=== PATIENT | female | born 1990 | race Caucasian/White ===

== ENCOUNTER 2020-01-06 06:07 | Day surgery (SDC) | payer OTHER ==
[2020-01-06] MEDS ORDERED: CEFAZOLIN SODIUM IN 0.9 % NACL 2 GM/100 ML BAG IV ONE (06:17)
[2020-01-06 06:28] LABS: HCG UR QUAL NEGATIVE
[2020-01-06] MEDS ORDERED: LACTATED RINGERS 1,000 ML IV ONE ×3 (06:37→08:38)
--- NOTE | 2020-01-06 07:02 | ANESTHESIA ---
Pre-Anesthesia VS, & Labs - Diagnosis right carpal tunnel syndrome - Procedure right carpal tunnel release Vital Signs: Temp Pulse Resp BP Pulse Ox 36.6 C 94 16 122/80 100 01/06/20 06:29 01/06/20 06:29 01/06/20 06:29 01/06/20 06:29 01/06/20 06:29 Height 5 ft 7 in Weight (kg) 75.75 kg - NPO >8 hours - Is Patient ?: No Home Medications and Allergies Home Medications: Ambulatory Orders Folic Acid 0.4 mg PO 12/30/19 Pnv No.121/Iron/Folic Acid [ Multivitamin Tablet] 1 each PO 12/30/19 Pregabalin [Lyrica] 150 mg PO 12/30/19 Folic Acid 0.4 mg PO 12/30/19 Pnv No.121/Iron/Folic Acid [ Multivitamin Tablet] 1 each PO 12/30/19 Pregabalin [Lyrica] 150 mg PO 12/30/19 Allergies/Adverse Reactions: Allergies Allergy/AdvReac Type Severity Reaction Status Date / Time amoxicillin Allergy Rash Verified 12/30/19 12:58 latex Allergy Rash Verified 12/30/19 12:58 Sulfa (Sulfonamide Allergy Rash Verified 12/30/19 12:58 Antibiotics) codeine AdvReac Nausea Verified 12/30/19 12:58 Anes History & Medical History - Anesthetic History Anesthesia Complications: reports: No previous complications - Medical History Cardiovascular: reports: None Pulmonary: reports: None Gastrointestinal: reports: None Urinary: reports: None Musculoskeletal: reports: Fibromyalgia, Other Endocrine/Autoimmune: reports: None Skin: reports: None - Surgical History General: Cholecystectomy Eyes Ears Nose Throat (EENT): Tonsil/Adenoidectomy Exam General: Alert Dental: WNL Mouth Opening: Greater than 4 Fingerbreadths Neck Mobility: Limited Mallampati classification: II Thyromental Distance: greater than 6 cm Respiratory: Lungs clear Cardiovascular: Regular rate, Normal S1, Normal S2 Plan Anesthesia Type: General Consent for Procedure(s) Verified and Reviewed: Yes Code Status: Attempt Resuscitation ASA classification: 2-Mild systemic disease Is this case an emergency?: No
[2020-01-06] MEDS ORDERED: BUPIVACAINE 0.25% PF 30 ML VIAL ONE (07:09)
[2020-01-06] MEDS ORDERED: LIDOCAINE-MPF 2% 5 ML VIAL IM ONE (07:26)
[2020-01-06] MEDS ORDERED: MIDAZOLAM 2 MG/2 ML VIAL IVP ONE (07:26)
[2020-01-06] MEDS ORDERED: KETOROLAC 30 MG/ML VIAL IVP ONE (07:26)
[2020-01-06] MEDS ORDERED: fentaNYL 100 MCG/2 ML VIAL IVP ONE (07:26)
[2020-01-06] MEDS ORDERED: ONDANSETRON 4 MG/2 ML VIAL IVP ONE (07:26)
[2020-01-06] MEDS ORDERED: DEXAMETHASONE 4 MG/ML VIAL IVP ONE (07:26)
[2020-01-06] MEDS ORDERED: PROPOFOL 200 MG/20 ML VIAL IVP ONE (07:26)
[2020-01-06] MEDS ORDERED: BUPIVACAINE 0.25% PF 30 ML VIAL SUBQ ONE ×2 (07:47)
[2020-01-06] MEDS ORDERED: ONDANSETRON 4 MG/2 ML VIAL IVP PRN (08:17)
--- NOTE | 2020-01-06 08:21 | OPERATIVE REPORT ---
Operative Report - Other Other Information/Narrative: Date of Surgery: 06 January 2020 Pre-Op Diagnosis: Right Carpal tunnel syndrome Procedure: Right Open carpal tunnel release Postop Diagnosis: Right Carpal tunnel syndrome Primary Surgeon: Alex Schroeder Secondary Surgeon: None Complications: None Tourniquet Time: 4 minutes EBL: 5 cc Indication For Surgery: 29-year-old female with ankylosing spondylitis and fibromyalgia with 1 year of right sided carpal tunnel syndrome with moderate to severe changes on a nerve conduction study. She failed management with nonoperative treatment. The risks, benefits, and alternatives were discussed. Risks include pain, bleeding, infection, damage to nearby structures, numbness, pillar pain, lack of symptom relief, need for further surgery, DVT, PE, stroke, and . Written consent was obtained. The patient was met in the preoperative holding on the day of the procedure. Operative extremity was signed. Consent was verified. They desire to proceed. They were brought to the operating room and placed in the supine position. A well-padded forearm tourniquet was applied. They were prepped and draped in the standard fashion. A surgical timeout was held will be confirmed the patient procedure, identity, allergies, antibiotics, images and laterality. All were in agreement we proceeded. An Esmarch was used to exsanguinate the limb and the tourniquet was elevated to 250 mmHg. A 3cm longitudinal incision was made in line with the ulnar border of the ring finger starting at Valdes's Cardinal line distally. This was just radial to the hook of the hamate. Bipolar electrocautery was used at the skin edge. Sharp dissection was brought down through the palmar fascia. Retractors were placed. The transverse carpal ligament was identified and a knife was used to separate it. The contents of the carpal tunnel were seen. Knife dissection was used to release the ligament as far proximal as could be visualized. Long handled Metzenbaum scissors were then used to create a pocket just superficial to the transverse carpal ligament and a retractor was placed. I then used a long handled Metzenbaum with the tips pointed ulnarly to complete the release 2 cm into the antebrachial fascia. Retractors were then moved distally and I confirmed complete release in the appearance of fat in the palm. A freer elevator was used to confirm complete release both proximally and distally. The wound was packed with a moist gauze and the tourniquet was deflated. After holding for 3 minutes the gauze was removed and bleeding was coming from the skin edge. Bleeding was controlled with bipolar electrocautery. The wound was closed with 4-0 nylon in a horizontal mattress configuration. 5 cc of local anesthetic was placed. A sterile bulky dressing was applied. He was awakened and transferred to the recovery room.
[2020-01-06] MEDS ORDERED: oxyCODONE 5 MG TABLET PO PRN (08:26)
[2020-01-06] MEDS ORDERED: fentaNYL 100 MCG/2 ML VIAL ONE (08:30)
[2020-01-06 09:40] VITALS: BP 105/70
== END 2020-01-06 06:08 | disposition home or self-care (01) ==
LOC: SDS 06:07
PROVIDERS: ATTEND Orthopaedic Surgery
DX: G56.01 Carpal tunnel syndrome, right upper limb (principal); M79.7 Fibromyalgia
CPT/HCPCS: 81025

== ENCOUNTER 2020-03-03 16:22 | Emergency (ER) | payer OTHER ==
[2020-03-03 17:13] LABS: BASOPHILS # (AUTO) 0.1 10^3/uL (0.0-0.1); BASOPHILS % (AUTO) 0.7 %; EOSINOPHILS # (AUTO) 0.1 10^3/uL (0.0-0.7); EOSINOPHILS % (AUTO) 1.9 %; HGB - HEMOGLOBIN 12.8 g/dL (12.0-16.0); LYMPHOCYTES # (AUTO) 2.3 10^3/uL (1.5-3.5); LYMPHOCYTES % (AUTO) 30.4 %; MEAN CORPUSCULAR HEMOGLOBIN 30.7 pg (27.0-31.0); MEAN CORPUSCULAR HGB CONC 33.4 g/dL (32.0-36.0); MEAN CORPUSCULAR VOLUME 91.8 fL (81.0-99.0); MEAN PLATELET VOLUME 10.7 fL (7.9-10.8); MONOCYTES # (AUTO) 0.4 10^3/uL (0.0-1.0); MONOCYTES % (AUTO) 5.6 %; NEUTROPHILS # (AUTO) 4.6 10^3/uL (1.5-6.6); NEUTROPHILS % (AUTO) 61.1 %; PLT - PLATELET COUNT 259 10^3/uL (130-450); RED BLOOD COUNT 4.17 10^6/uL (4.20-5.40); RED CELL DISTRIBUTION WIDTH 12.6 % (12.0-15.0); WHITE BLOOD COUNT 7.4 x10^3/uL (4.8-10.8)
[2020-03-03 17:27] LABS: ALBUMIN 4.1 g/dL (3.2-5.5); ALBUMIN/GLOBULIN RATIO 1.3 (1.0-2.2); BILIRUBIN,TOTAL 0.4 mg/dL (0.2-1.0); CALCIUM 8.8 mg/dL (8.5-10.3); CREATININE 0.6 mg/dL (0.4-1.0); TOTAL PROTEIN 7.3 g/dL (6.7-8.2)
--- NOTE | 2020-03-03 17:49 | ED Physician Documentation ---
<Cleve Feliciano - Last Filed: 03/03/20 20:44> PD HPI ABD PAIN - Stated complaint Stated Complaint: ABD & BACK PX - Chief complaint Chief Complaint: Abd Pain - History obtained from History obtained from: Patient PD PAST MEDICAL HISTORY - Present Medications Home Medications: Ambulatory Orders Medication Instructions Recorded Confirmed Folic Acid 0.4 mg PO 12/30/19 Pnv No.121/Iron/Folic Acid 1 each PO 12/30/19 [ Multivitamin Tablet] Pregabalin [Lyrica] 150 mg PO 12/30/19 - Allergies Allergies/Adverse Reactions: Allergies Allergy/AdvReac Type Severity Reaction Status Date / Time amoxicillin Allergy Rash Verified 03/03/20 16:41 latex Allergy Rash Verified 03/03/20 16:41 Sulfa (Sulfonamide Allergy Rash Verified 03/03/20 16:41 Antibiotics) codeine AdvReac Nausea Verified 03/03/20 16:41 PD MEDICAL DECISION MAKING - ED course Complexity details: other (20:45 patient signed out to me at shift change by dr. esquivel. patient reexamined at this time, pain is resolved. patient updated on results. will f/u w pcp and exceptional children teacher this week.) Departure - Departure Disposition: 01 Home, Self Care Clinical Impression: Ovarian cyst Qualifiers: Laterality: left Qualified Code(s): N83.202 - Unspecified ovarian cyst, left side Condition: Stable Instructions: ED Cyst Ovarian Follow-Up: REE OSPINA ARNP [Primary Care Provider] - Tomorrow Comments: call your NEEDLE CONTROL CHENILLER tomorrow or your PCP tomorrow to schedule a follow up. Discharge Date/Time: 03/03/20 20:53 <Phillip Esquivel - Last Filed: 03/04/20 00:10> PD HPI ABD PAIN - History obtained from History obtained from: Patient - History of Present Illness Timing - onset: How many days ago (4) Timing - duration: Days (4) Timing - details: Gradual onset, Still present (worse abruptly the past several hours. She had started on Clomid ovulation sitmulation med and talked with her mining engineering technologist about the pains, referred to ER to ensure no significant cause.), Waxing and waning Quality: Cramping, Aching, Sharp (today), Pain Location: RLQ, Suprapubic, LLQ Radiation: Lower back Improved by: No: Eating, Laying still Worsened by: Moving, Palpation. No: Eating, Breathing Associated symptoms: Nausea. No: Fever, Vomiting, Diarrhea, Constipation, Dysuria, Loss of appetite, Vaginal bleeding, Vaginal dc Similar symptoms before: Has not had sx before Recently seen: Clinic ([facility] about infertility med.) Review of Systems Constitutional: denies: Fever, Chills Nose: denies: Rhinorrhea / runny nose, Congestion Throat: denies: Sore throat Cardiac: denies: Chest pain / pressure Respiratory: denies: Cough GI: reports: Abdominal Pain, Nausea. denies: Vomiting, Constipation, Diarrhea : denies: Dysuria, Frequency, Discharge PD PAST MEDICAL HISTORY - Past Medical History Cardiovascular: None Respiratory: None Endocrine/Autoimmune: None GI: None : None HEENT: None Psych: None Musculoskeletal: Fibromyalgia, Other Derm: None - Past Surgical History General: Cholecystectomy HEENT: Tonsil/Adenoidectomy PD ED PE NORMAL - Vitals Vital signs reviewed: Yes - General General: Alert and oriented X 3, No acute distress, Well developed/nourished - HEENT HEENT: Moist mucous membranes, Pharynx benign - Neck Neck: Supple, no meningeal sign, No adenopathy - Cardiac Cardiac: RRR, No murmur - Respiratory Respiratory: Clear bilaterally - Abdomen Abdomen: Normal bowel sounds, Soft, Non distended, No organomegaly, Other (tender in suprapubic and infraumbilical area midline mainly with slight in both left and right lower abd/pelvic area. Not tender at [place] point itself. ) - Female Female : Deferred - Rectal Rectal: Deferred - Back Back: No CVA TTP - Derm Derm: Normal color, Warm and dry Results - Vitals Vitals: Vital Signs - 24 hr 03/03/20 03/03/20 03/03/20 16:32 16:41 18:22 Temperature 36.4 C L 36.9 C Heart Rate 110 H 88 84 Respiratory 20 20 18 Rate Blood Pressure 134/88 H 130/80 128/79 O2 Saturation 99 100 99 03/03/20 20:53 Temperature Heart Rate 77 Respiratory 16 Rate Blood Pressure 137/97 H O2 Saturation 100 Oxygen O2 Source Room air - Labs Labs: Laboratory Tests 03/03/20 03/03/20 03/03/20 16:50 17:07 17:07 WBC 7.4 RBC 4.17 L Hgb 12.8 Hct 38.3 MCV 91.8 MCH 30.7 MCHC 33.4 RDW 12.6 Plt Count 259 MPV 10.7 Neut # (Auto) 4.6 Lymph # (Auto) 2.3 Meagher # (Auto) 0.4 Eos # (Auto) 0.1 Baso # (Auto) 0.1 Absolute Nucleated RBC 0.00 Nucleated RBC % 0.0 Sodium 137 Potassium 3.5 Chloride 103 Carbon Dioxide 25 Anion Gap 9.0 BUN 11 Creatinine 0.6 Estimated GFR (MDRD) 119 Glucose 94 Calcium 8.8 Total Bilirubin 0.4 AST 29 ALT 32 Alkaline Phosphatase 49 Total Protein 7.3 Albumin 4.1 Globulin 3.2 Albumin/Globulin Ratio 1.3 Lipase 42 Serum HCG, Qual Urine Color YELLOW Urine Clarity CLEAR Urine pH 6.0 Ur Specific [place] 1.020 Urine Protein NEGATIVE Urine Glucose (UA) NEGATIVE Urine Ketones NEGATIVE Urine Occult Blood NEGATIVE Urine Nitrite NEGATIVE Urine Bilirubin NEGATIVE Urine Urobilinogen 0.2 (NORMAL) Ur Leukocyte Esterase NEGATIVE Ur Microscopic Review NOT INDICATED Urine Culture Comments NOT INDICATED 03/03/20 17:07 WBC RBC Hgb Hct MCV MCH MCHC RDW Plt Count MPV Neut # (Auto) Lymph # (Auto) Meagher # (Auto) Eos # (Auto) Baso # (Auto) Absolute Nucleated RBC Nucleated RBC % Sodium Potassium Chloride Carbon Dioxide Anion Gap BUN Creatinine Estimated GFR (MDRD) Glucose Calcium Total Bilirubin AST ALT Alkaline Phosphatase Total Protein Albumin Globulin Albumin/Globulin Ratio Lipase Serum HCG, Qual NEGATIVE Urine Color Urine Clarity Urine pH Ur Specific [place] Urine Protein Urine Glucose (UA) Urine Ketones Urine Occult Blood Urine Nitrite Urine Bilirubin Urine Urobilinogen Ur Leukocyte Esterase Ur Microscopic Review Urine Culture Comments - Rads (name of study) pelvic U/S Radiology: Prelim report reviewed (3.7 cm ovarian cyst without free fluid. Normal flow to both ovaries. ), See rad report PD MEDICAL DECISION MAKING - ED course Complexity details: reviewed results (3.7 cm left ovarian cyst. No free fluid. Normal flow to ovaries. ), considered differential (consider ovarian pain due to med stimulation versus new cyst, internal bleeding, ovarian torsion, or other cause. Low suspicion for appendix. Can check urine for infection. ), d/w patient ED course: care turned over to Dr. Feliciano at change of shift, with U/S report pending.
[2020-03-03 18:03] LABS: HCG,QUALITATIVE BLOOD NEGATIVE
[2020-03-03 18:07] LABS: BILIRUBIN,URINE NEGATIVE (NEGATIVE); CLARITY,URINE CLEAR (CLEAR); GLUCOSE, URINE (UA) NEGATIVE (NEGATIVE); KETONES,URINE (UA) NEGATIVE (NEGATIVE); LEUKOCYTE ESTERASE, URINE NEGATIVE (NEGATIVE); NITRITE,URINE NEGATIVE (NEGATIVE); OCCULT BLOOD,URINE NEGATIVE (NEGATIVE); PROTEIN,URINE NEGATIVE (NEGATIVE); UROBILINOGEN,URINE 0.2 (NORMAL) E.U./dL (NORMAL)
[2020-03-03] MEDS ORDERED: KETOROLAC 30 MG/ML VIAL IVP STA (18:22)
[2020-03-03] MEDS ORDERED: ACETAMINOPHEN 325 MG TABLET PO STA (18:22)
[2020-03-03] MEDS ORDERED: ONDANSETRON 4 MG/2 ML VIAL IVP STA (18:23)
[2020-03-03] MEDS ORDERED: ONDANSETRON ODT 4 MG TABLET TL STA (18:42)
[2020-03-03] MEDS ORDERED: KETOROLAC 30 MG/ML VIAL IM STA (18:42)
--- NOTE | 2020-03-03 20:13 | Ultrasound Report ---
Reason: pelvic pain, R Procedure Date: 03/03/2020 Accession Number: [id number] / [id number] Procedure: US - Pelvic w/Transvag+Doppler Comp CPT Code: Final Report FULL RESULT: EXAM: PELVIC ULTRASOUND WITH DOPPLERS CLINICAL HISTORY: Pelvic pain, R. COMPARISON: None. TECHNIQUE: Realtime transabdominal imaging performed to identify the uterus and adnexa and as an overview of other pelvic structures, followed by transvaginal imaging for better assessment of the endometrium and adnexa, with static image documentation. Color flow imaging and Doppler spectral analysis was performed to evaluate blood flow to the ovaries given pelvic pain and clinical concern for ovarian torsion. FINDINGS: Uterus: 7.7 x 2.7 x 4.3 cm, volume 47.1 cc. Anteverted position. Normal overall size and echotexture. Masses: None. Endometrium: 4 mm. Echogenic. Normal thickness Cervix: Unremarkable. Right Ovary: 2.1 x 1.5 x 1.8 cm, volume 3 cc. Normal echotexture. Arterial and venous blood flow are present. PSV 4.5 cm/sec. RI 0.6. Adnexa are unremarkable. Left Ovary: 4.7 x 2.6 x 4.4 cm, volume 28 cc. 3.7 x 3.1 x 2.3 cm simple cyst Arterial and venous blood flow are present. PSV 9.9 cm/sec. RI 0.6. Adnexa are unremarkable. Free Fluid: Small amount in cul-de-sac Other: None. IMPRESSION: 1. Left ovary simple cyst 3.7 cm. 2. Arterial and venous blood flow are present to the ovaries bilaterally. RADIA
[2020-03-03 20:54] VITALS: BP 137/97
== END 2020-03-03 20:53 | disposition home or self-care (01) ==
LOC: ED 16:22
DX: N83.202 Unspecified ovarian cyst, left side (principal)
CPT/HCPCS: 36415; 76830; 76856; 80053; 81003; 83690; 84703; 85025; 93975; 96372; 99284; A9270; Q0162; 81001; 87086

== ENCOUNTER 2020-07-16 06:11 | Day surgery (SDC) | payer OTHER ==
[2020-07-16] MEDS ORDERED: DEXAMETHASONE 4 MG/ML VIAL IVP ONE (06:12)
[2020-07-16] MEDS ORDERED: PROPOFOL 200 MG/20 ML VIAL IVP ONE (06:12)
[2020-07-16] MEDS ORDERED: fentaNYL 100 MCG/2 ML VIAL IVP ONE (06:12)
[2020-07-16] MEDS ORDERED: MIDAZOLAM 2 MG/2 ML VIAL IVP ONE (06:12)
[2020-07-16] MEDS ORDERED: CEFAZOLIN SODIUM IN 0.9 % NACL 2 GM/100 ML BAG IV ONE (06:22)
[2020-07-16] MEDS ORDERED: LACTATED RINGERS 1,000 ML IV ONE ×2 (06:30→08:11)
[2020-07-16 06:44] LABS: HCG UR QUAL NEGATIVE
[2020-07-16] MEDS ORDERED: fentaNYL 100 MCG/2 ML VIAL IVP PRN (07:02)
[2020-07-16] MEDS ORDERED: HYDROmorphone 0.5 MG/0.5 ML SYRINGE IVP PRN (07:02)
[2020-07-16] MEDS ORDERED: ePHEDrine 50 MG/ML VIAL IVP PRN (07:02)
[2020-07-16] MEDS ORDERED: NALOXONE 0.4 MG/ML VIAL IVP PRN (07:02)
[2020-07-16] MEDS ORDERED: METOCLOPRAMIDE 10 MG/2 ML VIAL IVP PRN (07:02)
[2020-07-16] MEDS ORDERED: ONDANSETRON 4 MG/2 ML VIAL IVP PRN (07:02)
[2020-07-16] MEDS ORDERED: ATROPINE ABBOJECT 1 MG/10 ML SYRINGE IVP PRN (07:02)
[2020-07-16] MEDS ORDERED: MORPHINE 2 MG/ML CARPUJECT IVP PRN (07:02)
[2020-07-16] MEDS ORDERED: BUPIVACAINE 0.25% PF 30 ML VIAL ONE (07:12)
[2020-07-16] MEDS ORDERED: LIDOCAINE-MPF 1% 30 ML VIAL ONE (07:12)
--- NOTE | 2020-07-16 07:28 | ANESTHESIA ---
Pre-Anesthesia VS, & Labs - Diagnosis Carpal Tunnel Syndrome - Procedure L carpal tunnel release Vital Signs: Temp Pulse Resp BP Pulse Ox 36.4 C L 83 16 118/85 H 97 07/16/20 06:30 07/16/20 06:30 07/16/20 06:30 07/16/20 06:30 07/16/20 06:30 Height: 5 ft 7 in Weight (kg): 79 kg Body Mass Index: 27.2 BMI Classification: Overweight - Is Patient ?: No Home Medications and Allergies Home Medications: Ambulatory Orders Nortriptyline HCl 50 mg PO DAILY PM 07/13/20 Active Medications Atropine Sulfate () 0.5 mg IVP Q5M PRN PRN Reason: Bradycardia Stop: 07/17/20 07:02 Ephedrine Sulfate () 10 mg IVP Q5M PRN PRN Reason: HYPOTENSION Stop: 07/17/20 07:02 Fentanyl (Fentanyl) 25 - 50 mcg IVP Q5M PRN PRN Reason: BREAKTHROUGH PAIN (2nd Choice) Stop: 07/17/20 07:02 Hydromorphone HCl (Dilaudid Inj Syringe) 0.2 - 0.6 mg IVP Q5M PRN PRN Reason: PAIN (First Choice) Stop: 07/17/20 07:02 Lactated Ringer's (Lr) 1,000 mls @ 100 mls/hr IV .Q10H JULIO CÉSAR Stop: 07/16/20 17:59 Metoclopramide HCl (Reglan Inj) 10 mg IVP Q6HR PRN PRN Reason: N/V not relieved by Zofran Morphine Sulfate (Morphine (Carpuject)) 2 - 4 mg IVP Q5M PRN PRN Reason: PAIN (3rd Choice) Stop: 07/17/20 07:02 Naloxone HCl (Narcan) 0.1 mg IVP Q2M PRN PRN Reason: RESP RATE <8 Stop: 07/17/20 07:02 Ondansetron HCl (Zofran Inj) 4 mg IVP ONCE PRN PRN Reason: N/V (First Choice) Stop: 07/17/20 07:02 Folic Acid 0.4 mg PO DAILY 12/30/19 Pnv No.121/Iron/Folic Acid [ Multivitamin Tablet] 1 each PO DAILY 12/30/19 Pregabalin [Lyrica] 150 mg PO DAILY PM 12/30/19 Nortriptyline HCl 50 mg PO DAILY PM 07/13/20 Allergies/Adverse Reactions: Allergies Allergy/AdvReac Type Severity Reaction Status Date / Time amoxicillin Allergy Rash Verified 07/16/20 06:46 latex Allergy Rash Verified 07/16/20 06:46 Sulfa (Sulfonamide Allergy Rash Verified 07/16/20 06:46 Antibiotics) codeine AdvReac Nausea Verified 07/16/20 06:46 Anes History & Medical History - Medical History Cardiovascular: reports: None Pulmonary: reports: Asthma (remote, no sxs currently. Rare rescue inhaler use. No qD meds. No ER visits in >15 years. No intubations.) Gastrointestinal: reports: None Urinary: reports: None Musculoskeletal: reports: Fibromyalgia Endocrine/Autoimmune: reports: None Skin: reports: None Smoking Status: Never smoker Psychosocial: reports: Alcohol (3-4/month) - Surgical History General: Cholecystectomy Eyes Ears Nose Throat (EENT): Tonsil/Adenoidectomy Orthopedic: Carpal Tunnel surgery Plan Anesthesia Type: General Consent for Procedure(s) Verified and Reviewed: Yes Code Status: Attempt Resuscitation ASA classification: 2-Mild systemic disease (remote asthma) Is this case an emergency?: No
[2020-07-16] MEDS ORDERED: BUPIVACAINE 0.25% PF 30 ML VIAL SUBQ ONE ×2 (07:53)
[2020-07-16] MEDS ORDERED: LACTATED RINGERS 1,000 ML IV SCH (08:00)
[2020-07-16] MEDS ORDERED: oxyCODONE 5 MG TABLET PO PRN (08:16)
--- NOTE | 2020-07-16 08:20 | OPERATIVE REPORT ---
Operative Report - Other Other Information/Narrative: Date of Surgery: 16 July 2020 Pre-Op Diagnosis: Left Carpal tunnel syndrome Procedure: Left Open carpal tunnel release Postop Diagnosis: Left Carpal tunnel syndrome Primary Surgeon: Alex Schroeder Secondary Surgeon: None Complications: None Tourniquet Time: 7 minutes EBL: 5 cc Indication For Surgery: 29-year-old female with bilateral carpal tunnel syndrome who underwent right-sided relief and and had excellent results. Her symptoms on the left side were more in the ulnar nerve carpal tunnel release may not improve these. Her left-sided symptoms are similar to her right-sided symptoms did improve after carpal tunnel release and so she wanted to move forward with surgery and I thought this was reasonable. The risks, benefits, and alternatives were discussed. Risks include pain, bleeding, infection, damage to nearby structures, numbness, pillar pain, lack of symptom relief, need for further surgery, DVT, PE, stroke, and . Written consent was obtained. The patient was met in the preoperative holding on the day of the procedure. O perative extremity was signed. Consent was verified. They desire to proceed. They were brought to the operating room and placed in the supine position. A well-padded forearm tourniquet was applied. They were prepped and draped in the standard fashion. A surgical timeout was held will be confirmed the patient procedure, identity, allergies, antibiotics, images and laterality. All were in agreement we proceeded. An Esmarch was used to exsanguinate the limb and the tourniquet was elevated to 200 mmHg. A 3cm longitudinal incision was made in line with the ulnar border of the ring finger starting at Valdes's Cardinal line distally. This was just radial to the hook of the hamate. Bipolar electrocautery was used at the skin edge. Sharp dissection was brought down through the palmar fascia. Retractors were placed. The transverse carpal ligament was identified and a knife was used to separate it. The contents of the carpal tunnel were seen. Knife dissection was used to release the ligament as far proximal as could be visualized. Long handled Metzenbaum scissors were then used to create a pocket just superficial to the transverse carpal ligament and a retractor was placed. I then used a long handled Metzenbaum with the tips pointed ulnarly to complete the release 2 cm into the antebrachial fascia. Retractors were then moved distally and I confirmed complete release in the appearance of fat in the palm. A freer elevator was used to confirm complete release both proximally and distally. The wound was packed with a moist gauze and the tourniquet was deflated. After holding for 3 minutes the gauze was removed and bleeding was coming from the skin edge. Bleeding was controlled with bipolar electrocautery. The wound was closed with 4-0 nylon in a horizontal mattress configuration. 8 cc of local anesthetic was placed. A sterile bulky dressing was applied. Shee was awakened and transferred to the recovery room.
[2020-07-16] MEDS ORDERED: fentaNYL 100 MCG/2 ML VIAL ONE (08:29)
[2020-07-16] MEDS ORDERED: HYDROmorphone 0.5 MG/0.5 ML SYRINGE ONE (08:29)
[2020-07-16] MEDS: ONDANSETRON 4 MG/2 ML VIAL IVP PRN ×2 (09:00→09:10)
[2020-07-16] MEDS ORDERED: oxyCODONE 5 MG TABLET ONE (09:02)
[2020-07-16] MEDS ORDERED: ONDANSETRON 4 MG/2 ML VIAL ONE (09:16)
[2020-07-16 09:17] VITALS: BP 115/60
== END 2020-07-16 06:12 | disposition home or self-care (01) ==
LOC: SDS 06:11
PROVIDERS: ATTEND Orthopaedic Surgery
DX: G56.02 Carpal tunnel syndrome, left upper limb (principal); M79.7 Fibromyalgia
CPT/HCPCS: 81025

== ENCOUNTER 2020-09-08 07:38 | Emergency (ER) | payer OTHER ==
[2020-09-08 08:16] LABS: BASOPHILS % (AUTO) 0.7 %; EOSINOPHILS # (AUTO) 0.1 10^3/uL (0.0-0.7); EOSINOPHILS % (AUTO) 1.4 %; HGB - HEMOGLOBIN 13.1 g/dL (12.0-16.0); LYMPHOCYTES # (AUTO) 1.6 10^3/uL (1.5-3.5); LYMPHOCYTES % (AUTO) 37.1 %; MEAN CORPUSCULAR HEMOGLOBIN 30.5 pg (27.0-31.0); MEAN CORPUSCULAR HGB CONC 32.7 g/dL (32.0-36.0); MEAN CORPUSCULAR VOLUME 93.5 fL (81.0-99.0); MEAN PLATELET VOLUME 10.7 fL (7.9-10.8); MONOCYTES # (AUTO) 0.3 10^3/uL (0.0-1.0); MONOCYTES % (AUTO) 7.5 %; NEUTROPHILS # (AUTO) 2.3 10^3/uL (1.5-6.6); NEUTROPHILS % (AUTO) 52.8 %; PLT - PLATELET COUNT 251 10^3/uL (130-450); RED BLOOD COUNT 4.29 10^6/uL (4.20-5.40); RED CELL DISTRIBUTION WIDTH 12.5 % (12.0-15.0); WHITE BLOOD COUNT 4.3 x10^3/uL (4.8-10.8)
--- NOTE | 2020-09-08 08:16 | ED Physician Documentation ---
PD HPI FEMALE - Stated complaint Stated Complaint: FEMAL - Chief complaint Chief Complaint: Abd Pain - History obtained from History obtained from: Patient, Family - History of Present Illness Timing - onset: How many days ago (3) Timing - duration: Days (3) Timing - details: Gradual onset, Still present, Waxing and waning Associated symptoms: Pelvic pain. No: Vaginal bleeding, Vaginal discharge, Genital sore/lesion Contributing factors: (today) OB-SLAT TWISTER History: G (1), P (0), Ovarian cysts Similar symptoms before: Diagnosis (pelvic pain from ovary) Recently seen: Clinic - Additional information Additional information: 29-year-old female who has been undergoing fertility treatment has developed pelvic pain in the left lower quadrant beginning about 3 days ago. She had her last menstrual period on August 08 and yesterday she had a negative test and today she has a positive test. She has come to the emergency department today with a concern for pelvic pain and early . She has not had vomiting she has not had vaginal bleeding or cramping she has pain to the left lower quadrant similar to what she has had previously with ovarian cyst. Review of Systems Constitutional: denies: Fever Eyes: denies: Decreased vision Ears: denies: Ear pain Nose: denies: Rhinorrhea / runny nose, Congestion Throat: denies: Sore throat Cardiac: denies: Chest pain / pressure, Palpitations Respiratory: denies: Dyspnea, Cough GI: reports: Abdominal Pain (LLQ). denies: Nausea, Vomiting : denies: Dysuria, Frequency Skin: denies: Rash Musculoskeletal: denies: Neck pain, Back pain, Extremity pain Neurologic: denies: Generalized weakness, Focal weakness PD PAST MEDICAL HISTORY - Past Medical History Cardiovascular: None Respiratory: Asthma (remote, no sxs currently. Rare rescue inhaler use. No qD meds. No ER visits in >15 years. No intubations.) Endocrine/Autoimmune: None GI: None : None HEENT: None Psych: None Musculoskeletal: Fibromyalgia Derm: None - Past Surgical History General: Cholecystectomy Ortho: Carpal Tunnel surgery HEENT: Tonsil/Adenoidectomy - Present Medications Home Medications: Ambulatory Orders Medication Instructions Recorded Confirmed Folic Acid 0.4 mg PO DAILY 12/30/19 07/16/20 Pnv No.121/Iron/Folic Acid 1 each PO DAILY 12/30/19 07/16/20 [ Multivitamin Tablet] Pregabalin [Lyrica] 150 mg PO DAILY PM 12/30/19 07/16/20 Nortriptyline HCl 50 mg PO DAILY PM 07/13/20 07/16/20 - Allergies Allergies/Adverse Reactions: Allergies Allergy/AdvReac Type Severity Reaction Status Date / Time amoxicillin Allergy Rash Verified 09/08/20 07:43 latex Allergy Rash Verified 09/08/20 07:43 Sulfa (Sulfonamide Allergy Rash Verified 09/08/20 07:43 Antibiotics) codeine AdvReac Nausea Verified 09/08/20 07:43 - Social History Does the pt smoke?: No Smoking Status: Never smoker Does the pt drink ETOH?: No Does the pt have substance abuse?: No - Immunizations Immunizations are current?: Yes PD ED PE NORMAL - Vitals Vital signs reviewed: Yes (hypertensive) - General General: Alert and oriented X 3, No acute distress, Well developed/nourished - HEENT HEENT: Atraumatic, PERRL, EOMI - Cardiac Cardiac: RRR, No murmur - Respiratory Respiratory: No respiratory distress - Abdomen Abdomen: Soft, Non distended, No organomegaly, Other (minimal LLQ/suprapubic pain to palpation ) - Back Back: No CVA TTP, No spinal TTP - Derm Derm: Normal color, Warm and dry, No rash - Extremities Extremities: No deformity, No edema - Neuro Neuro: Alert and oriented X 3, 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1 Baso # (Auto) 0.0 Absolute Nucleated RBC 0.00 Nucleated RBC % 0.0 Sodium 137 Potassium 4.4 Chloride 99 L Carbon Dioxide 24 Anion Gap 14.0 H BUN 12 Creatinine 0.6 Estimated GFR (MDRD) 119 Glucose 95 Calcium 9.0 Total Bilirubin 0.5 AST 20 ALT 27 Alkaline Phosphatase 64 Total Protein 7.6 Albumin 4.0 Globulin 3.6 Albumin/Globulin Ratio 1.1 Lipase 34 HCG, Quant Urine Color YELLOW Urine Clarity CLEAR Urine pH 6.0 Ur Specific [place] 1.010 Urine Protein NEGATIVE Urine Glucose (UA) NEGATIVE Urine Ketones NEGATIVE Urine Occult Blood NEGATIVE Urine Nitrite NEGATIVE Urine Bilirubin NEGATIVE Urine Urobilinogen 0.2 (NORMAL) Ur Leukocyte Esterase NEGATIVE Ur Microscopic Review NOT INDICATED Urine Culture Comments NOT INDICATED Urine HCG, Qual POSITIVE 09/08/20 08:12 WBC RBC Hgb Hct MCV MCH MCHC RDW Plt Count MPV Neut # (Auto) Lymph # (Auto) [place] # (Auto) Eos # (Auto) Baso # (Auto) Absolute Nucleated RBC Nucleated RBC % Sodium Potassium Chloride Carbon Dioxide Anion Gap BUN Creatinine Estimated GFR (MDRD) Glucose Calcium Total Bilirubin AST ALT Alkaline Phosphatase Total Protein Albumin Globulin Albumin/Globulin Ratio Lipase HCG, Quant 208.43 Urine Color Urine Clarity Urine pH Ur Specific [place] Urine Protein Urine Glucose (UA) Urine Ketones Urine Occult Blood Urine Nitrite Urine Bilirubin Urine Urobilinogen Ur Leukocyte Esterase Ur Microscopic Review Urine Culture Comments Urine HCG, Qual PD MEDICAL DECISION MAKING - ED course Complexity details: reviewed results, re-evaluated patient, considered differential, d/w patient, d/w family ED course: 29 y/o female with LLQ pain and early has expected findings on ultrasound with a quant of 208 and an ultrasound showing a corpus leuteum cyst on the left. We will ask her to follow up with her SLAT TWISTER for repeat hCG in 2 days. Departure - Departure Disposition: 01 Home, Self Care Clinical Impression: Early stage of Condition: Stable Instructions: ED Abdominal Pain Rule Out Ectopic Follow-Up: REE OSPINA ARNP [Primary Care Provider] - Comments: Today your quantitative hCG was 208 and this would normally indicate a too early to be able to see anything on the ultrasound. It is imperative that you have this blood test repeated in 2 days time to make certain that it is rising in the appropriate fashion and we will not likely be able to see anything with ultrasound for about another month.
[2020-09-08 08:28] LABS: BILIRUBIN,URINE NEGATIVE (NEGATIVE); GLUCOSE, URINE (UA) NEGATIVE (NEGATIVE); KETONES,URINE (UA) NEGATIVE (NEGATIVE); LEUKOCYTE ESTERASE, URINE NEGATIVE (NEGATIVE); NITRITE,URINE NEGATIVE (NEGATIVE); OCCULT BLOOD,URINE NEGATIVE (NEGATIVE); PROTEIN,URINE NEGATIVE (NEGATIVE); UROBILINOGEN,URINE 0.2 (NORMAL) E.U./dL (NORMAL)
[2020-09-08 08:29] LABS: CLARITY,URINE CLEAR (CLEAR)
[2020-09-08 08:32] LABS: HCG UR QUAL POSITIVE
[2020-09-08 08:35] LABS: ALBUMIN/GLOBULIN RATIO 1.1 (1.0-2.2); BILIRUBIN,TOTAL 0.5 mg/dL (0.2-1.0); CREATININE 0.6 mg/dL (0.4-1.0); TOTAL PROTEIN 7.6 g/dL (6.7-8.2)
--- NOTE | 2020-09-08 09:41 | Ultrasound Report ---
PROCEDURE: OB First Trimester INDICATIONS: early LLQ pain OUTSIDE/PRIOR DATING DATA: Last menstrual period (LMP): 08/08/2020. LMP-based estimated date of delivery (MICHAELA): 05/15/2021. First dating scan (date and location): 11/08/2019. Estimated date of delivery (MICHAELA) from first dating scan: Not applicable. TECHNIQUE: Real-time scanning was performed of the fetus and maternal pelvic organs, with image documentation. COMPARISON: Pelvic ultrasound 03/03/2020 FINDINGS: Embryo: There is no visualized intrauterine or extrauterine identified. Measurement variability in dating: +/- 4 weeks by LMP, +/- 7 days by mean sac diameter (use before 6 weeks gestation if crown-rump length not able to be measured), +/- 5 days by crown-rump length (6-12 weeks gestation). Maternal organs: Ovaries demonstrate what appears to be a left corpus luteal cyst.. Limited images through the kidneys demonstrate no hydronephrosis. IMPRESSION: 1. No visualized intrauterine or extrauterine . Suspected left ovarian corpus luteal cyst is noted. Recommend correlation to beta hCG levels and short interval imaging follow-up for further natalee luation of intrauterine or ectopic progression. Reviewed by: Jody Fox MD on 09/08/2020 9:39 AM PST Approved by: Jody Fox MD on 09/08/2020 9:39 AM PST Station ID: [id number]
--- NOTE | 2020-09-08 09:41 | Ultrasound Report ---
PROCEDURE: OB Transvaginal INDICATIONS: early LLQ pain OUTSIDE/PRIOR DATING DATA: Last menstrual period (LMP): 08/08/2020. LMP-based estimated date of delivery (MICHAELA): 05/15/2021. First dating scan (date and location): 11/08/2019. Estimated date of delivery (MICHAELA) from first dating scan: Not applicable. TECHNIQUE: Real-time scanning was performed of the fetus and maternal pelvic organs, with image documentation. COMPARISON: Pelvic ultrasound 03/03/2020 FINDINGS: Embryo: There is no visualized intrauterine or extrauterine identified. Measurement variability in dating: +/- 4 weeks by LMP, +/- 7 days by mean sac diameter (use before 6 weeks gestation if crown-rump length not able to be measured), +/- 5 days by crown-rump length (6-12 weeks gestation). Maternal organs: Ovaries demonstrate what appears to be a left corpus luteal cyst.. Limited images through the kidneys demonstrate no hydronephrosis. IMPRESSION: 1. No visualized intrauterine or extrauterine . Suspected left ovarian corpus luteal cyst is noted. Recommend correlation to beta hCG levels and short interval imaging follow-up for further natalee luation of intrauterine or ectopic progression. Reviewed by: Jody Fox MD on 09/08/2020 9:40 AM PST Approved by: Jody Fox MD on 09/08/2020 9:40 AM PST Station ID: [id number]
[2020-09-08 09:42] VITALS: BP 125/84
== END 2020-09-08 09:44 | disposition home or self-care (01) ==
LOC: ED 07:38
DX: O34.81 Maternal care for other abnormalities of pelvic organs, first trimester (principal); N83.12 Corpus luteum cyst of left ovary; Z3A.00 Weeks of gestation of pregnancy not specified
CPT/HCPCS: 36415; 76801; 76817; 80053; 81001; 81003; 81025; 83690; 84702; 85025; 87086; 99284

== ENCOUNTER 2020-11-08 09:54 | Emergency (ER) | payer OTHER ==
[2020-11-08] MEDS ORDERED: SODIUM CHLORIDE 0.9% 1,000 ML IV STA (11:03)
[2020-11-08] MEDS ORDERED: ONDANSETRON 4 MG/2 ML VIAL IVP STA (11:03)
[2020-11-08] MEDS ORDERED: HYDROmorphone 1 MG/ML CARPUJECT IVP STA (11:03)
--- NOTE | 2020-11-08 11:07 | ED Physician Documentation ---
PD HPI HEADACHE - Stated complaint Stated Complaint: VOMITING,MCGOWAN - Chief complaint Chief Complaint: Neuro - History obtained from History obtained from: Patient - History of Present Illness Timing - onset: Enter time (0800), Yesterday Timing - onset during: Rest Timing - duration: Days (1) Timing - details: Gradual onset, Still present Location: Front, Back, Right Quality: Throbbing Associated symptoms: Nausea, Vomiting. No: Fever, Stiff neck Improved by: Rest, Dark room, Meds Worsened by: Light, Noise, Moving Similar symptoms before: Diagnosis (migraine) Recently seen: Clinic - Additional information Additional information: 29-year-old female with history of fibromyalgia is 13 weeks and she has a history of migraine headaches and she has developed a migraine yesterday morning. She has used Tylenol without improvement and she has come now to the emergency department with vomiting photophobia right-sided hemicranial pain.She states these symptoms are typical for her migraine she usually has some as needed Phenergan and fiorocet that she is able to take and she is not able to ta ke that now. Review of Systems Constitutional: denies: Fever, Chills Eyes: denies: Decreased vision Ears: denies: Ear pain Nose: denies: Rhinorrhea / runny nose, Congestion Throat: denies: Sore throat Cardiac: denies: Chest pain / pressure, Palpitations Respiratory: denies: Dyspnea, Cough GI: reports: Nausea, Vomiting. denies: Abdominal Pain : denies: Dysuria, Frequency Skin: denies: Rash, Lesions Musculoskeletal: reports: Neck pain. denies: Back pain, Extremity pain Neurologic: reports: Headache. 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 : None HEENT: None Psych: None Musculoskeletal: Fibromyalgia Derm: None - Past Surgical History Past Surgical History: Yes General: Cholecystectomy Ortho: Carpal Tunnel surgery HEENT: Tonsil/Adenoidectomy - Present Medications Home Medications: Ambulatory Orders Medication Instructions Recorded Confirmed Folic Acid 0.4 mg PO DAILY 12/30/19 11/08/20 Pnv No.121/Iron/Folic Acid 1 each PO DAILY 12/30/19 11/08/20 [ Multivitamin Tablet] Pregabalin [Lyrica] 75 mg PO DAILY PM 12/30/19 11/08/20 Nortriptyline HCl 50 mg PO DAILY PM 07/13/20 11/08/20 - Allergies Allergies/Adverse Reactions: Allergies Allergy/AdvReac Type Severity Reaction Status Date / Time amoxicillin Allergy Rash Verified 11/08/20 10:05 latex Allergy Rash Verified 11/08/20 10:05 Sulfa (Sulfonamide Allergy Rash Verified 11/08/20 10:05 Antibiotics) codeine AdvReac Nausea Verified 11/08/20 10:05 - Social History Does the pt smoke?: No Smoking Status: Never smoker Does the pt drink ETOH?: No Does the pt have substance abuse?: No - Immunizations Immunizations are current?: Yes - POLST Patient has POLST: No PD ED PE NORMAL - Vitals Vital signs reviewed: Yes (tachy ) - General General: Alert and oriented X 3, Well developed/nourished, Other (appears mildly anxious ) - HEENT HEENT: Atraumatic, PERRL, EOMI - Neck Neck: Supple, no meningeal sign, No bony TTP, Other (There is some mild tenderness to the insertion of the trapezius to the occiput on the right side.) - Cardiac Cardiac: RRR, No murmur - Respiratory Respiratory: No respiratory distress - Abdomen Abdomen: Normal bowel sounds, Soft, Non tender, Non distended, No organomegaly - Back Back: No CVA TTP, No spinal TTP - Derm Derm: Normal color, Warm and dry, No rash - Extremities Extremities: No deformity, No edema - Neuro Neuro: Alert and oriented 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, 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, No motor deficit, No sensory deficit, Normal speech Eye Opening: Spontaneous Motor: Obeys Commands Verbal: Oriented GCS Score: 15 - Psych Psych: Normal mood, Normal affect Results - Vitals Vitals: Vital Signs - 24 hr 11/08/20 11/08/20 11/08/20 10:01 10:17 12:01 Temperature 37 C Heart Rate 104 H 91 73 Respiratory 17 16 16 Rate Blood Pressure 128/67 124/75 112/74 O2 Saturation 97 98 100 Oxygen O2 Source Room air - Labs Labs: Laboratory Tests 11/08/20 11/08/20 10:40 10:40 WBC 5.4 RBC 4.01 L Hgb 11.9 L Hct 36.2 L MCV 90.3 MCH 29.7 MCHC 32.9 RDW 11.9 L Plt Count 236 MPV 11.0 H Neut # (Auto) 3.5 Lymph # (Auto) 1.6 [place] # (Auto) 0.3 Eos # (Auto) 0.0 Baso # (Auto) 0.0 Absolute Nucleated RBC 0.00 Nucleated RBC % 0.0 Sodium 137 Potassium 3.8 Chloride 106 Carbon Dioxide 24 Anion Gap 7.0 BUN 6 Creatinine 0.6 Estimated GFR (MDRD) 119 Glucose 90 Calcium 9.4 Total Bilirubin 0.4 AST 17 ALT 17 Alkaline Phosphatase 55 Total Protein 7.0 Albumin 3.4 Globulin 3.6 Albumin/Globulin Ratio 0.9 L Lipase 33 Procedures - Bedside sono Bedside sono by EMP: With the use of bedside ultrasound the fetus is imaged it is active and has a heart rate of 156 bpm. PD MEDICAL DECISION MAKING - ED course Complexity details: reviewed old records, reviewed results, re-evaluated patient, considered differential, d/w patient ED course: 29-year-old female with history of migraine headaches is 13 weeks she has been having symptoms for 24 hours plus and she has not able to use her usual rescue medications. Here in the emergency department she is administered a liter of saline a milligram of Dilaudid and 4 mg of Zofran intravenously. Departure - Departure Disposition: 01 Home, Self Care Clinical Impression: Migraine Qualifiers: Migraine type: without aura Status migrainosus presence: without status migrainosus Intractability: not intractable Qualified Code(s): G43.009 - Migraine without aura, not intractable, without status migrainosus Condition: Stable Instructions: ED Headache Migraine Follow-Up: Jesus Corrales MD [Primary Care Provider] -
[2020-11-08 11:11] LABS: BASOPHILS % (AUTO) 0.6 %; EOSINOPHILS % (AUTO) 0.6 %; HGB - HEMOGLOBIN 11.9 g/dL (12.0-16.0); LYMPHOCYTES # (AUTO) 1.6 10^3/uL (1.5-3.5); MEAN CORPUSCULAR HEMOGLOBIN 29.7 pg (27.0-31.0); MEAN CORPUSCULAR HGB CONC 32.9 g/dL (32.0-36.0); MEAN CORPUSCULAR VOLUME 90.3 fL (81.0-99.0); MONOCYTES # (AUTO) 0.3 10^3/uL (0.0-1.0); MONOCYTES % (AUTO) 4.6 %; NEUTROPHILS # (AUTO) 3.5 10^3/uL (1.5-6.6); NEUTROPHILS % (AUTO) 64.8 %; PLT - PLATELET COUNT 236 10^3/uL (130-450); RED BLOOD COUNT 4.01 10^6/uL (4.20-5.40); RED CELL DISTRIBUTION WIDTH 11.9 % (12.0-15.0); WHITE BLOOD COUNT 5.4 x10^3/uL (4.8-10.8)
[2020-11-08 11:22] LABS: ALBUMIN 3.4 g/dL (3.2-5.5); ALBUMIN/GLOBULIN RATIO 0.9 (1.0-2.2); BILIRUBIN,TOTAL 0.4 mg/dL (0.2-1.0); CALCIUM 9.4 mg/dL (8.5-10.3); CREATININE 0.6 mg/dL (0.4-1.0)
[2020-11-08 12:41] VITALS: BP 104/74
== END 2020-11-08 12:41 | disposition home or self-care (01) ==
LOC: ED 09:54
DX: O99.351 Diseases of the nervous system complicating pregnancy, first trimester (principal); G43.009 Migraine without aura, not intractable, without status migrainosus; Z3A.13 13 weeks gestation of pregnancy
CPT/HCPCS: 36415; 80053; 83690; 85025; 96361; 96374; 96375; 99283; 99284; J1170

== ENCOUNTER 2021-03-01 09:00 | Outpatient (CLI) | payer OTHER ==
[2021-03-01 12:14] LABS: BASOPHILS % (AUTO) 0.5 %; EOSINOPHILS # (AUTO) 0.1 10^3/uL (0.0-0.7); EOSINOPHILS % (AUTO) 1.1 %; HCT - HEMATOCRIT 40.9 % (37.0-47.0); HGB - HEMOGLOBIN 13.4 g/dL (12.0-16.0); LYMPHOCYTES # (AUTO) 1.8 10^3/uL (1.5-3.5); LYMPHOCYTES % (AUTO) 24.2 %; MEAN CORPUSCULAR HEMOGLOBIN 29.5 pg (27.0-31.0); MEAN CORPUSCULAR HGB CONC 32.8 g/dL (32.0-36.0); MEAN CORPUSCULAR VOLUME 89.9 fL (81.0-99.0); MEAN PLATELET VOLUME 11.3 fL (7.9-10.8); MONOCYTES # (AUTO) 0.4 10^3/uL (0.0-1.0); MONOCYTES % (AUTO) 5.8 %; NEUTROPHILS # (AUTO) 4.9 10^3/uL (1.5-6.6); NEUTROPHILS % (AUTO) 66.9 %; PLT - PLATELET COUNT 255 10^3/uL (130-450); RED BLOOD COUNT 4.55 10^6/uL (4.20-5.40); RED CELL DISTRIBUTION WIDTH 13.1 % (12.0-15.0); WHITE BLOOD COUNT 7.4 x10^3/uL (4.8-10.8)
== END 2021-03-01 09:01 | disposition home or self-care (01) ==
LOC: LAB.N 09:00
PROVIDERS: ATTEND Obstetrics & Gynecology
DX: Z36.89 Encounter for other specified antenatal screening (principal)
CPT/HCPCS: 36415; 82950; 85025

== ENCOUNTER 2021-03-21 05:34 | Outpatient (CLI) | payer OTHER ==
[2021-03-21 06:12] LABS: CREATININE,URINE 101.8 mg/dL; PROTEIN/CREATININE RATIO,URINE 0.1 (<=0.2)
[2021-03-21 06:12] LABS: BASOPHILS # (AUTO) 0.1 10^3/uL (0.0-0.1); BASOPHILS % (AUTO) 0.6 %; EOSINOPHILS # (AUTO) 0.1 10^3/uL (0.0-0.7); EOSINOPHILS % (AUTO) 1.2 %; HCT - HEMATOCRIT 39.7 % (37.0-47.0); HGB - HEMOGLOBIN 12.9 g/dL (12.0-16.0); LYMPHOCYTES # (AUTO) 2.1 10^3/uL (1.5-3.5); MEAN CORPUSCULAR HEMOGLOBIN 28.8 pg (27.0-31.0); MEAN CORPUSCULAR HGB CONC 32.5 g/dL (32.0-36.0); MEAN CORPUSCULAR VOLUME 88.6 fL (81.0-99.0); MEAN PLATELET VOLUME 12.2 fL (7.9-10.8); MONOCYTES # (AUTO) 0.5 10^3/uL (0.0-1.0); MONOCYTES % (AUTO) 5.9 %; NEUTROPHILS # (AUTO) 5.6 10^3/uL (1.5-6.6); NEUTROPHILS % (AUTO) 66.6 %; PLT - PLATELET COUNT 209 10^3/uL (130-450); RED BLOOD COUNT 4.48 10^6/uL (4.20-5.40); RED CELL DISTRIBUTION WIDTH 12.9 % (12.0-15.0); WHITE BLOOD COUNT 8.4 x10^3/uL (4.8-10.8)
[2021-03-21 06:26] LABS: CREATININE 0.6 mg/dL (0.4-1.0); URIC ACID 6.1 mg/dL (2.6-7.2)
[2021-03-21 07:16] VITALS: BP 136/88
--- NOTE | 2021-03-21 07:51 | PROVIDER PROGRESS NOTE ---
- HPI Chief Complaint: Hypertension/PIH (Identification: Patient is a 30-year-old primigravida at 32 weeks EGA. Patient has been monitoring her blood pressure at home. She had just returned from the long trip from [place]. She was taking her blood pressures which are running in the 130s over 80s. This morning she felt off r) Current : Current EDU 05/15/21 Gestation 32 Weeks and 1 Days 1 Para 0 Vital Signs Temperature 37.0 C 03/21/21 05:52 Heart Rate 85 03/21/21 05:52 Respiratory Rate 20 03/21/21 05:52 Blood Pressure 147/85 H 03/21/21 05:52 O2 Saturation 98 03/21/21 05:52 Temperature 37.0 C 03/21/21 05:52 Heart Rate 77 03/21/21 07:15 Respiratory Rate 18 03/21/21 07:15 Blood Pressure 136/88 H 03/21/21 07:15 O2 Saturation 98 03/21/21 05:52 - Procedures Diagnosis/Indication for NST: Gestational Hypertension NST Procedure: NST Procedure Start Date 03/21/21 Start Time 05:44 Stop Time 06:20 Vibroacoustic Stimulation Used No Patient States Movement Yes Service Date of procedure: 03/21/21 Procedure Details: Was 151/91Nonstress test was reactive. Her blood pressure on admission however throughout her stay her systolic decreased into the 20s and 30s however diastolic remained in the 90s. Her [facility] labs showed a protein creatinine ratio of 0.1. Her uric acid was 6.1 her creatinine was 0.6. Platelets were 209. Physical examination well-developed well-nourished white female no acute distress HEENT: Pupils equal round extraocular muscles are intact Heart: Regular rate and rhythm without murmurs Lungs: Clear without rales or wheezes Abdomen gravid nontender. DTRs: Patellar reflexes are +1. No clonus bilateral. Extremities: Minimal edema. Impression: 30-year-old primigravida with family history of hypertension who is developing gestational hypertension. She has been briefed in the past about the possible need for antihypertensives as well as betamethasone for lung maturity. Plan: Start patient on labetalol 100 mg p.o. twice daily. We will administer betamethasone 12 mg IM and repeat in 24 hours Patient have a follow-up appointment in the clinic this week.
[2021-03-21] MEDS ORDERED: BETAMETHASONE 30 MG/5 ML VIAL IM ONE (08:00)
== END 2021-03-21 08:10 | disposition home or self-care (01) ==
LOC: WFO 05:34 → FBP 05:35 → WFO 08:10
PROVIDERS: ATTEND Obstetrics & Gynecology
DX: O13.3 Gestational [pregnancy-induced] hypertension without significant proteinuria, third trimester (principal); Z3A.32 32 weeks gestation of pregnancy
CPT/HCPCS: 36415; 59025; 82565; 82570; 83615; 84156; 84450; 84460; 84550; 85025; 96372; 99213; 99214

== ENCOUNTER 2021-03-22 08:28 | Outpatient (CLI) | payer OTHER ==
[2021-03-22] MEDS ORDERED: BETAMETHASONE 30 MG/5 ML VIAL IM ONE (08:37)
[2021-03-22 09:01] VITALS: BP 129/77
--- NOTE | 2021-04-21 10:42 | PROVIDER PROGRESS NOTE ---
Subjective - Prog Note Date Prog Note Date: 04/21/21 (03/22/21) Prog Note Time: 10:29 (0913) - Subjective Pt reports feeling: No change Subjective: Date of service is 03/22/21 Patient is here for repeat betamethasone shot. She has a diagnosis of gestational hypertension has just recently been started on labetalol. Blood pressure today are noted be within limits. She is here for injection. Impression gestational hypertension with the possibility of early delivery. Plan: Betamethasone 12 mg IM
== END 2021-03-22 09:03 | disposition home or self-care (01) ==
LOC: WFO 08:28 → FBP 08:33 → WFO 09:03
PROVIDERS: ATTEND Obstetrics & Gynecology
DX: O13.9 Gestational [pregnancy-induced] hypertension without significant proteinuria, unspecified trimester (principal); Z3A.00 Weeks of gestation of pregnancy not specified
CPT/HCPCS: 96372; 99211

== ENCOUNTER 2021-03-27 21:18 | Outpatient (CLI) | payer OTHER ==
[2021-03-27 22:13] LABS: RUPTURE OF MEMBRANES PLUS POSITIVE (NEGATIVE)
[2021-03-27] MEDS ORDERED: AZITHROMYCIN 250 MG TABLET PO STA (22:32)
[2021-03-27] MEDS ORDERED: LACTATED RINGERS 1,000 ML IV ONE (22:33)
[2021-03-27] MEDS ORDERED: ceFAZolin 1 GM VIAL ONE (22:47)
[2021-03-27 22:53] LABS: BASOPHILS # (AUTO) 0.1 10^3/uL (0.0-0.1); BASOPHILS % (AUTO) 0.5 %; EOSINOPHILS # (AUTO) 0.1 10^3/uL (0.0-0.7); HCT - HEMATOCRIT 40.8 % (37.0-47.0); HGB - HEMOGLOBIN 13.5 g/dL (12.0-16.0); LYMPHOCYTES # (AUTO) 3.5 10^3/uL (1.5-3.5); LYMPHOCYTES % (AUTO) 27.8 %; MEAN CORPUSCULAR HEMOGLOBIN 29.3 pg (27.0-31.0); MEAN CORPUSCULAR HGB CONC 33.1 g/dL (32.0-36.0); MEAN CORPUSCULAR VOLUME 88.5 fL (81.0-99.0); MEAN PLATELET VOLUME 12.5 fL (7.9-10.8); MONOCYTES # (AUTO) 0.7 10^3/uL (0.0-1.0); MONOCYTES % (AUTO) 5.9 %; NEUTROPHILS # (AUTO) 7.7 10^3/uL (1.5-6.6); NEUTROPHILS % (AUTO) 61.3 %; PLT - PLATELET COUNT 275 10^3/uL (130-450); RED BLOOD COUNT 4.61 10^6/uL (4.20-5.40); RED CELL DISTRIBUTION WIDTH 13.4 % (12.0-15.0); WHITE BLOOD COUNT 12.5 x10^3/uL (4.8-10.8)
[2021-03-27 22:57] LABS: BILIRUBIN,URINE NEGATIVE (NEGATIVE); GLUCOSE, URINE (UA) NEGATIVE (NEGATIVE); KETONES,URINE (UA) NEGATIVE (NEGATIVE); LEUKOCYTE ESTERASE, URINE NEGATIVE (NEGATIVE); NITRITE,URINE NEGATIVE (NEGATIVE); OCCULT BLOOD,URINE NEGATIVE (NEGATIVE); PH,URINE 6.5 PH (5.0-7.5); PROTEIN,URINE NEGATIVE (NEGATIVE); UROBILINOGEN,URINE 0.2 (NORMAL) E.U./dL (NORMAL)
[2021-03-27 22:58] LABS: BACTERIA,URINE Rare /HPF (None Seen); CLARITY,URINE CLEAR (CLEAR); RBC,URINE 0-5 /HPF (0-5); SQUAMOUS EPITHELIAL CELL,UR RARE Squamous (<= Few); WBC,URINE 0-3 /HPF (0-5)
[2021-03-27] MEDS ORDERED: LACTATED RINGERS 1,000 ML IV SCH (23:00)
[2021-03-27] MEDS ORDERED: ceFAZolin 1 GM in SODIUM CHLORIDE 0.9% MINIBAG 100 ML IV SCH (23:00)
[2021-03-27 23:11] LABS: ALBUMIN/GLOBULIN RATIO 0.8 (1.0-2.2); BILIRUBIN,TOTAL 0.4 mg/dL (0.2-1.0); CALCIUM 9.3 mg/dL (8.5-10.3); CREATININE 0.6 mg/dL (0.4-1.0); POTASSIUM 4.4 mmol/L (3.5-5.0); TOTAL PROTEIN 6.8 g/dL (6.7-8.2)
[2021-03-27 23:20] LABS: RUPTURE OF MEMBRANES PLUS POSITIVE (NEGATIVE)
--- NOTE | 2021-03-28 01:06 | HISTORY & PHYSICAL EXAMINATION ---
Admit History - Visit Reason Visit Reason: Membranes rupture - : 1 Parity: 0 Risk/History: positive: Other Complications This : positive: induced HTN, Other Smoking Status: Never smoker - Mother's Labs Mother's Blood Type: positive: A Mother's RH: positive: Positive GBS: positive: Other (pending) Rubella Status: positive: Immune - Other Maternal History Other Maternal History: Patient is a 30 yo at 33+1 wga here with concern for PPROM. has been complicated by fibromylagia for which patient takes Lyrica 150 mg po daily and nortriptyline QHS. She has recent diagnosis of gestational hypertension with negative P:C and neg PIH labs, no medications. She was given betamethasone on 03/21/21 and 03/22/21. Blood pressures have been normal since 03/21/21 and are mildly elevated at this presentation. Patient reports passing small amounts of clear lfuid per vagina all day. Has been wearing a pad and fluid is noted to be clear and watery; no pink or green coloration. Gushes of fluid have been in small volume and occur at random. Perceived as likely heavy discharge. No contractions of vaginal bleeding. Endorses FM. No recent IC. Reports amoxicillin allergy- reaction was a skin rash and occurred as a childhood exposure. 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 OK to BF Chronic migraines: ok with phenergan and fioricet. Reglan did not improve. Improved on magnesium 500 mg po QHS Depression: Improved most recent visit GHTN: Mild range pressures on 03/21/21; neg PIH symptoms and normal labs -MET CRITERIA ON 03/27 PRESENTATION WITH 2nd EPISODE MILD RANGE PRESSURES (normal labs, no sx) Has had COVID vaccine x2 A pos/Rub imm AFP wnl at [facility]. 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 FAS wnl CL 4.05 cm Flu Vax declined d/t allergy TDAP -03/16/21 Glucola 135 HSV: denies GBS: at 36 weeks Breast pump Rx: given Pap was 07/14/19 wnl Contraception: TBD IOL at 39 weeks ROS: As per HPI, otherwise remaining systems are negative. Meds/Allgy - Home Medications Home Medications: Ambulatory Orders Medication Instructions Recorded Confirmed Folic Acid 0.4 mg PO DAILY 12/30/19 03/27/21 Pnv No.121/Iron/Folic Acid 1 each PO DAILY 12/30/19 03/27/21 [ Multivitamin Tablet] Nortriptyline HCl 50 mg PO DAILY PM 07/13/20 03/27/21 Pregabalin [Lyrica] 150 mg PO DAILY #90 cap 03/09/21 03/27/21 Magnesium 50 mg PO DAILY 03/27/21 03/27/21 - Allergies Allergies/Adverse Reactions: Allergies Allergy/AdvReac Type Severity Reaction Status Date / Time amoxicillin Allergy Rash Verified 03/27/21 23:38 latex Allergy Rash Verified 03/27/21 23:38 Sulfa (Sulfonamide Allergy Rash Verified 03/27/21 23:38 Antibiotics) codeine AdvReac Nausea Verified 03/27/21 23:38 Review of Systems - Other Findings Other Findings: As per HPI, otherwise remaining systems are negative. Physical - Abdominal Exam Vital Signs: Temp Pulse Resp BP Pulse Ox 98.6 F 105 H 24 139/96 H 97 03/27/21 21:33 03/27/21 23:08 03/27/21 21:33 03/27/21 23:10 03/27/21 21:35 Contraction Frequency (min/apart): irritable - Monitoring Strip Review: positive: Category I - Presentation Presentation: positive: Vertex - Vaginal Exam Membranes: positive: Membranes ruptured Dilation (in cm): 1 Effacement (%): 60% Station: positive: -2 Cervical Position: positive: Anterior - Speculum Exam Speculum Exam Performed: positive: Yes - Other Notes Labor Progress Note/Additional Text: GEN: NAD HEENT: NCAT CV: mild tachycardia RESP: nl effort ABD: gravid, S&NT/ND EXT: WWP PSYCH: appropriate affect NEURO: alert and oriented SVE /-2/anterior/med ROM+: positive x2 Pooling: negative Nitrazine: neg x 3 Ferning: blind swab negative Ferning: repeat with swab taken directly from cervix- positive US- formal read pending vertex TACL 1.5 cm JAH 11.0 UA neg for protein CBC : WBC 12.5 HCT 40.8 PLT 275 AST 16 ALT 14 Cr 0.6 EFM 145 mod irish 15x15 accels no decels TOCO: irritable Plan for Labor - Plan For Labor Plan for Labor: 30 yo at 33+1 with PPROM PPROM: Confirmed by ROM+ positive x2 and positive ferning -Suspect high micro-rupture -Normal JAH -Given azithromycin 1000mg po x1 - Given cefazolin 1g IV x1 given amoxicillin allergy (Revisit candidacy for ampicillin/amoxicillin given remote hx of childhood rash) -BMZ complete for [mild] GHTN on 03/21 and 03/22/21 -SVE 60/-2 FWB:vertex, EFW 42%ile on prior estimate, JAH 11, Cat I tracing -GBS pending -BMZ 03/21 and 03/22 GHTN: mild, no medications, normal PIH labs and neg sx FIBROMYALGIA: -Lyrica 150mg po daily -Nortriptlyine QHS Transfer to [facility]. Accepting MD Dr. Angel
[2021-03-28 02:01] VITALS: BP 123/86
[2021-03-28 02:46] LABS: CHLAMYDIA TRACHOMATIS DNA NEGATIVE (NEGATIVE); NEISSERIA GONORRHOEAE DNA NEGATIVE (NEGATIVE); TRICHOMONAS VAGINALIS DNA NEGATIVE (NEGATIVE)
--- NOTE | 2021-03-28 10:31 | Ultrasound Report ---
PROCEDURE: OB Limited INDICATIONS: Premature ROM at 33weeks OUTSIDE/PRIOR DATING DATA: Last menstrual period (LMP): 08/08/2020. LMP-based estimated date of delivery (MICHAELA): 05/05/2021. First dating scan (date and location): Not applicable. Estimated date of delivery (MICHAELA) from first dating scan: Not applicable. The below data below was generated using the provider given MICHAELA of 05/15/2021 TECHNIQUE: Real-time scanning was performed of the fetus, with image documentation. COMPARISON: 09/08/2020 FINDINGS: A single live intrauterine gestation is present. Presentation: Cephalic Placenta: Placental position is posterior, without previa. Amniotic fluid index: 13.5 cm, within normal limits for gestational age. heart rate: 143 beats per minutes. Maternal cervical canal: Not well seen IMPRESSION: Single live intrauterine . Note: No significant discrepancy from the preliminary report. Note: This study performed with Dr. Glover present and observing. Reviewed by: Dewayne Mujica MD on 03/28/2021 9:30 AM SAFIA Approved by: Dewayne Mujica MD on 03/28/2021 9:30 AM SAFIA Station ID: [id number]
--- NOTE | 2021-04-25 21:33 | PROCEDURE REPORT ---
- HPI Diagnosis/Indication for NST: Other (PPROM) Current EDU 05/15/21 Gestation 33 Weeks and 0 Days 1 Para 0 Vital Signs Heart Rate 105 H 03/27/21 21:15 Blood Pressure 129/95 H 03/27/21 21:15 Temperature 98.2 F 03/28/21 01:05 Heart Rate 117 H 03/28/21 01:05 Respiratory Rate 20 03/28/21 01:05 Blood Pressure 123/86 H 03/28/21 01:05 O2 Saturation 96 03/28/21 01:05 - NST Procedure NST Procedure Start Date 03/27/21 Start Time 21:32 Stop Time 22:10 Vibroacoustic Stimulation Used No Patient States Movement Yes: r/o PPROM EFM 145 mod irish 15x15 accels no decels TOCO: irritable/evie - Results and Plan Findings/Impression: 30 yo at 33+0 here with PPROM Cat I tracing Please see full OB outpatient H&P for full details of intervention Ultimately transferred to [place] DX: IUP at 33+0 PPROM NST read 03/27/21 DOS: 03/27/21
== END 2021-03-28 01:25 | disposition short-term general hospital (02) ==
LOC: WFO 21:18 → FBP 21:19 → WFO 03-28 01:25
PROVIDERS: ATTEND Obstetrics & Gynecology
DX: O42.913 Preterm premature rupture of membranes, unspecified as to length of time between rupture and onset of labor, third trimester (principal); Z3A.33 33 weeks gestation of pregnancy; O13.3 Gestational [pregnancy-induced] hypertension without significant proteinuria, third trimester; O99.353 Diseases of the nervous system complicating pregnancy, third trimester; M79.7 Fibromyalgia; G43.909 Migraine, unspecified, not intractable, without status migrainosus; O99.343 Other mental disorders complicating pregnancy, third trimester; F32.9 Major depressive disorder, single episode, unspecified; Z79.899 Other long term (current) drug therapy
CPT/HCPCS: 36415; 59025; 76815; 80053; 81001; 84112; 85025; 87491; 87591; 87661; 87797; 96365; 99214; A9270; J7120; 87086

== ENCOUNTER 2021-03-28 01:32 | Outpatient (CLI) | payer OTHER | END 2021-03-28 01:33 | disposition short-term general hospital (02) | LOC: EMS 01:32 | PROVIDERS: ATTEND Obstetrics & Gynecology | DX: O42.90 Premature rupture of membranes, unspecified as to length of time between rupture and onset of labor, unspecified weeks of gestation (principal); Z3A.33 33 weeks gestation of pregnancy | CPT/HCPCS: A0425; A0428 ==

== ENCOUNTER 2022-04-23 10:41 | Emergency (ER) | payer OTHER ==
[2022-04-23 11:14] VITALS: BP 128/80
--- NOTE | 2022-04-23 12:06 | XRAY Report ---
PROCEDURE: Ankle 3 View LT INDICATIONS: Trauma TECHNIQUE: 4 images of the ankle were acquired. COMPARISON: None FINDINGS: Bones: No fractures or dislocations. Ankle mortise is normally aligned. No suspicious bony lesions . Soft tissues: No tibiotalar joint effusion. Achilles tendon appears normal. Mild soft tissue swell ing lateral ankle. IMPRESSION: No acute osseous abnormality. Reviewed by: Rock Mcgee DO on 04/23/2022 11:04 AM [facility] Approved by: Rock Mcgee DO on 04/23/2022 11:04 AM [facility] Station ID: [id number]
--- NOTE | 2022-04-23 12:35 | ED Physician Documentation ---
History of Present Illness - Stated complaint Stated Complaint: Eliana ESTRADA INJURY - Chief complaint Chief Complaint: Trauma Ext - Additonal information Additional information: 31-year-old female presents to the emergency department for evaluation of acute left ankle pain. Inversion injury at home after a fall. Did not strike her head or lose consciousness. Unable to bear weight. Has a history of fibromyalgia. 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 : None HEENT: None Psych: None Musculoskeletal: Fibromyalgia Derm: None - Past Surgical History Past Surgical History: Yes General: Cholecystectomy Ortho: Carpal Tunnel surgery HEENT: Tonsil/Adenoidectomy - Present Medications Home Medications: Ambulatory Orders Medication Instructions Recorded Confirmed Folic Acid 0.4 mg PO DAILY 12/30/19 03/27/21 Pnv No.121/Iron/Folic Acid 1 each PO DAILY 12/30/19 03/27/21 [ Multivitamin Tablet] Nortriptyline HCl 50 mg PO DAILY PM 07/13/20 03/27/21 Pregabalin [Lyrica] 150 mg PO DAILY #90 cap 03/09/21 03/27/21 Magnesium 50 mg PO DAILY 03/27/21 03/27/21 oxyCODONE [Roxicodone] 5 mg PO TID PRN #10 tablet 04/23/22 - Allergies Allergies/Adverse Reactions: Allergies Allergy/AdvReac Type Severity Reaction Status Date / Time amoxicillin Allergy Rash Verified 04/23/22 11:15 latex Allergy Rash Verified 04/23/22 11:15 Sulfa (Sulfonamide Allergy Rash Verified 04/23/22 11:15 Antibiotics) codeine AdvReac Nausea Verified 04/23/22 11:15 - Social History Does the pt smoke?: No Smoking Status: Never smoker Does the pt drink ETOH?: Yes Does the pt have substance abuse?: Yes Substance Use and Type: Marijuana, CBD oil / Products - Immunizations Immunizations are current?: Yes - POLST Patient has POLST: No PD ED PE EXPANDED - General General: Alert - Extremities Extremities: Left ankle (Swelling and tenderness lateral malleolus and anterior ankle. Superficial abrasion. Reduced range of motion secondary to pain. 2+ DP pulse. Can bear partial weight though is unable to walk) Results - Vitals Vitals: Vital Signs - 24 hr 04/23/22 11:10 Temperature 36.6 C Heart Rate 92 Respiratory 16 Rate Blood Pressure 128/80 O2 Saturation 99 Oxygen O2 Source Room air - Rads (name of study) left ankle Radiology: Final report received (No acute fracture or osseous lesion or disloc ation) PD MEDICAL DECISION MAKING - ED course Complexity details: reviewed results, considered differential, d/w patient ED course: 31-year-old female who has a history most significant for fibromyalgia presents the ER with acute left ankle pain after an inversion injury and fall at home. She felt a pop in the ankle. Now unable to walk though she can bear partial weight. X-ray is negative. She is placed in an Aircast and given crutches. I am prescribing a short course of short-acting opioid pain medication for this patient. I have reviewed the patients SKATING CARHOP and no concerning findings were noted. I have discussed that the opioids are for short term therapy only, and will not be refilled from the ED. Departure - Departure Disposition: 01 Home, Self Care Clinical Impression: Left ankle sprain Qualifiers: Encounter type: initial encounter Involved ligament of ankle: unspecified ligament Qualified Code(s): S93.402A - Sprain of unspecified ligament of left ankle, initial encounter Condition: Stable Record reviewed to determine appropriate education?: Yes Instructions: ED Sprain Ankle W X Ray Prescriptions: oxyCODONE [Roxicodone] 5 mg PO TID PRN #10 tablet PRN Reason: Pain Comments: Nancy you were seen today for pain in your left ankle after a fall and inversion injury. The x-ray does not show an obvious fracture. You have however sustained a moderate to severe sprain. In general I recommend that you wear the air splint when out of bed. Ice the ankle for 10 minutes 3 times a day. You can take ibuprofen 600 mg with food. You can take this 3 times a day. You can continue your Lyrica. For severe pain I have prescribed a limited amount of oxycodone. You would benefit from follow-up to orthopedics. Please discuss this with [facility]. In general most ankle sprains will heal over 1 to 3 weeks. If you are not able to bear weight better over the next 7 to 10 days a repeat x-ray may be indicated.
== END 2022-04-23 12:47 | disposition home or self-care (01) ==
LOC: ED 10:41
DX: S93.402A Sprain of unspecified ligament of left ankle, initial encounter (principal); X50.1XXA Overexertion from prolonged static or awkward postures, initial encounter
CPT/HCPCS: 99282; 99283